=== PATIENT | male | born 1960 | race Caucasian/White ===

== ENCOUNTER 2017-02-01 19:00 | Emergency (ER) | payer OTHER ==
[2017-02-01 19:05] VITALS: RESP 18; TEMP 98.4; O2SAT 96
[2017-02-01] MEDS ORDERED: TDAP ADULT 0.5 ML INJ (BOOSTRIX) IM ONE (20:32)
--- NOTE | 2017-02-01 20:34 | EDPHY ---
H & P Time Seen by Provider: 02/01/17 19:10 HPI/ROS: CHIEF COMPLAINT: Right index finger splinter HISTORY OF PRESENT ILLNESS: 56-year-old male presents emergency department with a splinter underneath his right fingernail that happened today. Tetanus is not up-to-date. Patient denies other complaints. Smoking Status: Never smoked Physical Exam: GEN: Awake, alert, oriented, no acute distress RESP: nl resp effort MSK: Normal active range of motion against resistance, 2 point discrimination intact, cap refill less than 2 seconds SKIN: 0.5 cm splinter visible underneath right index fingernail Constitutional: Initial Vital Signs Temperature (C) 36.9 C 02/01/17 19:04 Heart Rate 81 02/01/17 19:04 Respiratory Rate 18 02/01/17 19:04 Blood Pressure 142/87 H 02/01/17 19:04 O2 Sat (%) 96 02/01/17 19:04 O2 Delivery Mode Room Air Allergies/Adverse Reactions: No Known Allergies Allergy (Unverified 02/01/17 19:05) Home Medications: Medication Instructions Recorded Aspirin [Aspirin 81mg (*)] 81 mg PO DAILY 02/01/17 CHOLECALCIFEROL [VITAMIN D] 400 unit PO 02/01/17 Statin? 02/01/17 MDM/Departure - MDM Procedures: Procedure: Splinter removal Digital block performed with 5 mL of 1% lidocaine without epinephrine, good anesthesia obtained, splinter was removed underneath fingernail with splinter forceps. Patient tolerated this without difficulty. - Depart Disposition: Home, Routine, Self-Care Clinical Impression: Splinter in skin Condition: Good Instructions: Acute Wounds (ED) Additional Instructions: Soak your finger in warm water 5 times a day for 10 minutes for 3-4 days. Return to the emergency department for any signs of infection, redness, fevers, pus drainage, any new symptoms or concerns. Referrals: NONE *PRIMARY CARE P,. [Primary Care Provider] - As per Instructions
[2017-02-01 20:54] VITALS: BP 132/88; PULSE 63
== END 2017-02-01 20:54 | disposition home or self-care (01) ==
PROC: 3E0T3CZ (ICD-10-PCS; principal; 2017-02-01)
DX: S60.450A Superficial foreign body of right index finger, initial encounter (principal); Z23 Encounter for immunization; Z79.82 Long term (current) use of aspirin; W45.8XXA Other foreign body or object entering through skin, initial encounter